=== PATIENT | female | born 1980 | race African-American/Black ===

== ENCOUNTER 2018-06-30 09:17 | Outpatient (RCR) | payer OTHER | END 2018-08-04 | disposition home or self-care (01) | LOC: WSOH | DX: S93.402A Sprain of unspecified ligament of left ankle, initial encounter (principal); W00.0XXA Fall on same level due to ice and snow, initial encounter; Y93.F9 Activity, other caregiving; Y92.129 Unspecified place in nursing home as the place of occurrence of the external cause; Y99.0 Civilian activity done for income or pay; F17.210 Nicotine dependence, cigarettes, uncomplicated; Z79.899 Other long term (current) drug therapy | CPT/HCPCS: 24091; A6549 ==

== ENCOUNTER 2019-01-26 08:00 | Emergency (ER) | payer OTHER ==
[~2019-01-26] VITALS: Ht 167.6 cm; Wt 95.5 kg
[2019-01-26 08:06] VITALS: BP 152/93; TEMP 98.4
[2019-01-26] MEDS ORDERED: FLEXERIL 1010 MG/TAB PO (09:36)
[2019-01-26] MEDS ORDERED: LIDODERM 5% PATC1 EA TP (09:36)
[2019-01-26 10:47] VITALS: PULSE 66
== END 2019-01-26 09:49 | disposition home or self-care (01) ==
LOC: COL.ER 08:00
DX: S16.1XXA Strain of muscle, fascia and tendon at neck level, initial encounter (principal); S39.012A Strain of muscle, fascia and tendon of lower back, initial encounter; F17.210 Nicotine dependence, cigarettes, uncomplicated; Z90.710 Acquired absence of both cervix and uterus; Z90.49 Acquired absence of other specified parts of digestive tract; Z88.5 Allergy status to narcotic agent; V43.52XA Car driver injured in collision with other type car in traffic accident, initial encounter